=== PATIENT | male | born 1950 | race Caucasian/White ===

== ENCOUNTER 2019-01-27 09:16 | Emergency (ER) | payer OTHER, MEDICAID ==
[~2019-01-27] VITALS: Ht 167.6 cm; Wt 87.1 kg
[2019-01-27 09:24] VITALS: BP_SYST 128
[2019-01-27 10:45] VITALS: BP_SYST 135
== END 2019-01-27 10:30 | disposition home or self-care (01) ==
LOC: SED 09:16
DX: S91.012D Laceration without foreign body, left ankle, subsequent encounter (principal); W45.8XXD Other foreign body or object entering through skin, subsequent encounter
CPT/HCPCS: 99281

== ENCOUNTER 2019-02-01 09:37 | Emergency (ER) | payer OTHER, MEDICAID ==
[~2019-02-01] VITALS: Ht 167.6 cm; Wt 81.6 kg
[2019-02-01 09:37] VITALS: BP_SYST 157
== END 2019-02-01 10:12 | disposition home or self-care (01) ==
LOC: SED 09:37
DX: S91.012D Laceration without foreign body, left ankle, subsequent encounter (principal); W45.8XXD Other foreign body or object entering through skin, subsequent encounter
CPT/HCPCS: 99281